=== PATIENT | male | born 1950 | race Caucasian/White ===

== ENCOUNTER 2019-01-03 08:44 | Emergency (ER) | payer OTHER ==
[~2019-01-03] VITALS: Ht 175.3 cm; Wt 109.1 kg
[2019-01-03 09:33] LABS: BASOPHILS % (AUTO) 0.4 % (0-1); EOSINOPHILS # (AUTO) 0.3 X10'3 (0-0.9); EOSINOPHILS % (AUTO) 4.2 % (0-6); HEMATOCRIT 49.5 % (42.0-52.0); HEMOGLOBIN 16.8 g/dl (14.0-17.9); LYMPHOCYTES # (AUTO) 1.1 X10'3 (1.1-4.8); LYMPHOCYTES % (AUTO) 14.6 % (21-51); MEAN CORPUSCULAR HEMOGLOBIN 33.8 PG (27.0-31.0); MEAN CORPUSCULAR HGB CONC 33.8 g/dL (33.0-36.5); MONOCYTES # (AUTO) 0.8 X10'3 (0-0.9); MONOCYTES % (AUTO) 10.7 % (2-12); NEUTROPHILS # (AUTO) 5.2 X10'3 (1.8-7.7); NEUTROPHILS % (AUTO) 70.1 % (42-75); PLATELET COUNT 168 X10'3 (140-440); RED BLOOD COUNT 4.95 X10'6 (4.70-6.10); RED CELL DISTRIBUTION WIDTH 14.8 % (11.5-14.5); WHITE BLOOD COUNT 7.4 X10'3 (4.5-11.0)
[2019-01-03 09:59] LABS: ALANINE AMINOTRANSFERASE 33 U/L (12-78); ALBUMIN 3.5 G/DL (3.4-5.0); ALBUMIN/GLOBULIN RATIO 0.9 (1.1-1.5); ALKALINE PHOSPHATASE 79 IU/L (46-116); ANION GAP 10 (8-16); ASPARTATE AMINO TRANSFERASE 29 U/L (10-37); BILIRUBIN,TOTAL 0.5 MG/DL (0.1-1.0); BLOOD UREA NITROGEN 16 MG/DL (7-18); BUN/CREATININE RATIO 18.6 (5.4-32.0); CALCIUM 9.5 MG/DL (8.5-10.1); CHLORIDE 104 MMOL/L (99-107); CREATININE 0.86 MG/DL (0.60-1.10); GLUCOSE 96 MG/DL (70-104); POTASSIUM 4.2 MMOL/L (3.5-5.1); SODIUM 141 MMOL/L (135-145); TOTAL CARBON DIOXIDE 26.7 MMOL/L (24-32); TOTAL PROTEIN 7.4 G/DL (6.4-8.2); eGFR 89 ML/MIN
[2019-01-03 10:27] LABS: TROPONIN I < 0.04 NG/ML (0.0-0.05)
[2019-01-03] MEDS ORDERED: iohexol 350MG/ML 100ml bottle IV ONE (10:55)
--- NOTE | 2019-01-03 11:36 | NUR ---
patient in ct scan via [facility]
[2019-01-03] MEDS ORDERED: ipratropium/albuterol 3ml nebule NEB ONE (12:15)
[2019-01-03] MEDS ORDERED: levoFLOXACIN 750MG TABLET PO ONE (12:15)
[2019-01-03] MEDS ORDERED: normal saline 1000ml 1,000 ML IV ONE (12:15)
[2019-01-03] MEDS ORDERED: methylPREDNISolone sod succ 125mg/2ml vial IV ONE (12:15)
[2019-01-03] MEDS ORDERED: BENZ-16 PO (13:03)
[2019-01-03] MEDS ORDERED: LEVO750T21 PO (13:03)
[2019-01-03] MEDS ORDERED: IPRA3AMP31 IH (13:03)
[2019-01-03] MEDS ORDERED: PRED20TA PO (13:03)
[2019-01-03 14:19] VITALS: BP 132/84
== END 2019-01-03 14:28 | disposition home or self-care (01) ==
LOC: ER 08:45
DX: J44.1 Chronic obstructive pulmonary disease with (acute) exacerbation (principal); Z79.899 Other long term (current) drug therapy
CPT/HCPCS: 36415; 71046; 71275; 80053; 83605; 85025; 87040; 93005; 94640; 94760; 96361; 96374; 99284; J2930; J7030; Q9967; 83880; 84484

== ENCOUNTER 2019-01-08 08:48 | Emergency (ER) | payer OTHER ==
[~2019-01-08] VITALS: Ht 175.3 cm; Wt 109.1 kg
[~2019-01-08 08:48] MED LIST: BENZ-16 PO; IPRA3AMP31 IH; LEVO750T21 PO
[2019-01-08] MEDS ORDERED: ipratropium/albuterol 3ml nebule NEB ONE (09:05)
[2019-01-08] MEDS ORDERED: methylPREDNISolone sod succ 125mg/2ml vial IV ONE (09:20)
[2019-01-08] MEDS ORDERED: guaiFENesin ER 600mg tablet PO STA (09:29)
[2019-01-08 09:34] LABS: BASOPHILS # (AUTO) 0.1 X10'3 (0-0.2); BASOPHILS % (AUTO) 1.5 % (0-1); EOSINOPHILS # (AUTO) 0.4 X10'3 (0-0.9); EOSINOPHILS % (AUTO) 5.1 % (0-6); HEMATOCRIT 50.9 % (42.0-52.0); LYMPHOCYTES # (AUTO) 1.3 X10'3 (1.1-4.8); LYMPHOCYTES % (AUTO) 17.1 % (21-51); MEAN CORPUSCULAR HEMOGLOBIN 33.4 PG (27.0-31.0); MEAN CORPUSCULAR HGB CONC 33.3 g/dL (33.0-36.5); MEAN CORPUSCULAR VOLUME 100.1 FL (78-98); MEAN PLATELET VOLUME 6.8 FL (7.4-10.4); MONOCYTES # (AUTO) 0.6 X10'3 (0-0.9); MONOCYTES % (AUTO) 7.5 % (2-12); NEUTROPHILS # (AUTO) 5.2 X10'3 (1.8-7.7); NEUTROPHILS % (AUTO) 68.8 % (42-75); PLATELET COUNT 182 X10'3 (140-440); RED BLOOD COUNT 5.08 X10'6 (4.70-6.10); RED CELL DISTRIBUTION WIDTH 15.1 % (11.5-14.5); WHITE BLOOD COUNT 7.6 X10'3 (4.5-11.0)
[2019-01-08] MEDS ORDERED: normal saline 500ml IV soln 1,000 ML IV SCH (09:45)
[2019-01-08 09:46] LABS: ALANINE AMINOTRANSFERASE 39 U/L (12-78); ALBUMIN 3.6 G/DL (3.4-5.0); ALKALINE PHOSPHATASE 72 IU/L (46-116); ANION GAP 8 (8-16); ASPARTATE AMINO TRANSFERASE 28 U/L (10-37); BILIRUBIN,TOTAL 0.5 MG/DL (0.1-1.0); BLOOD UREA NITROGEN 15 MG/DL (7-18); BUN/CREATININE RATIO 17.4 (5.4-32.0); CALCIUM 9.5 MG/DL (8.5-10.1); CHLORIDE 103 MMOL/L (99-107); CREATININE 0.86 MG/DL (0.60-1.10); GLUCOSE 101 MG/DL (70-104); PARTIAL THROMBOPLASTIN TIME 27 SECONDS (22-32); POTASSIUM 4.1 MMOL/L (3.5-5.1); PROTHROMBIN TIME 9.8 SECONDS (9.0-12.0); SODIUM 141 MMOL/L (135-145); TOTAL CARBON DIOXIDE 30.2 MMOL/L (24-32); TOTAL PROTEIN 7.2 G/DL (6.4-8.2); eGFR 89 ML/MIN
[2019-01-08] MEDS ORDERED: normal saline 500ml IV soln 500 ML IV ONE ×2 (09:50→10:05)
[2019-01-08] MEDS ORDERED: DOXY100C2 PO (10:34)
[2019-01-08] MEDS ORDERED: PRED20TA PO (10:34)
[2019-01-08 10:57] VITALS: BP 151/83
== END 2019-01-08 10:59 | disposition home or self-care (01) ==
LOC: ER 08:49
DX: J44.1 Chronic obstructive pulmonary disease with (acute) exacerbation (principal); Z79.899 Other long term (current) drug therapy; Z88.2 Allergy status to sulfonamides
CPT/HCPCS: 36415; 71045; 80053; 83605; 83880; 84484; 85025; 85610; 85730; 87040; 87070; 93005; 94640; 94760; 96374; 99284; J2930; J7030